=== PATIENT | female | born 1970 | race African-American/Black ===

== ENCOUNTER 2021-02-25 12:43 | Outpatient (REF) | payer BC, SELFPAY ==
--- NOTE | ~2021-02-25 | MM_ITS ---
EXAMINATION: MM SCREENING DIGITAL BREAST TOMOSYNTHESIS, BILATERAL CLINICAL INFORMATION: Screening. Asymptomatic. Family history breast cancer, sister. Personal history breast reduction mammoplasty 2012. The lifetime risk of breast cancer based on the Tyrer-Cuzick Model is 28%. COMPARISON: Mammography: 09/29/2018; outside mammography 12/14/2015 ([facility]). TECHNIQUE: Digital breast tomosynthesis is performed in both the craniocaudal and mediolateral oblique views along with computer-aided detection (CAD). Synthesized 2D images are generated from the tomosynthesis. FINDINGS: There are scattered areas of fibroglandular density (ACR BI-RADS breast composition Category b). There are no significant masses, abnormal calcifications, or other abnormalities. Parenchymal pattern is similar to prior studies. Some minor scarring consistent with the reduction mammoplasty is stable. There is no developing density. The axilla are unremarkable. No significant changes. MM/MM tomosynthesis screening BI IMPRESSION: No mammographic evidence of malignancy. ASSESSMENT: BI-RADS 2: Benign RECOMMENDATION: 1. Routine annual mammography screening. 2. The lifetime risk of breast cancer based on the Tyrer-Cuzick Model is 28%. Additional annual adjunct screening with breast MRI may be of benefit in women with a risk score of 20% or greater. This patient's information was entered into a reminder system with a target due date for their next mammogram.
== END 2021-02-25 12:44 | disposition home or self-care (01) ==
LOC: HO.MAMMO 12:43
PROVIDERS: Visit Provider Internal Medicine
DX: Z12.31 Encounter for screening mammogram for malignant neoplasm of breast (principal)
CPT/HCPCS: 77063; 77067

== ENCOUNTER 2022-12-04 08:56 | Outpatient (REF) | payer BC, SELFPAY ==
[2022-12-04 11:15] LABS: MANUAL DIFF FLAG NO
[2022-12-04 11:42] LABS: Basophils Percent Auto 0.5 % (0-2); Eosinophils Absolute Auto 0.2 X10*3/uL (0.0-0.4); Eosinophils Percent Auto 3.2 % (0-4); Hematocrit 39.5 % (37.0-47.0); Hemoglobin 12.7 g/dl (12.0-16.0); Imm Gran Abs Auto 0.02 X10*3/uL (0.00-0.03); Imm Gran Pct Auto 0.3 % (0.0-0.4); Lymphocytes Absolute Auto 2.2 X10*3/uL (1.2-4.9); Mean Corpuscular HGB Conc 32.2 g/dl (31.0-35.0); Mean Corpuscular Hemoglobin 25.6 pg (27.0-33.0); Mean Corpuscular Volume 79.6 fL (80.0-98.0); Mean Platelet Volume 10.1 fL (9.4-12.3); Monocytes Absolute Auto 0.3 X10*3/uL (0.1-1.2); Monocytes Percent Auto 5.3 % (2-11); Neutrophils Absolute Auto 3.4 x10*3/uL (2.0-8.3); Neutrophils Percent Auto 54.7 % (45-73); Platelet Count 390 X10*3/uL (160-400); Red Blood Count 4.96 X10*6/uL (4.20-5.50); Red Cell Distribution Width 14.4 % (11.0-16.0); White Blood Count 6.2 X10*3/uL (4.8-10.8)
[2022-12-04 12:28] LABS: TSH reflex Free T4 2.68 uIU/mL (0.32-4.0)
[2022-12-04 12:50] LABS: Alanine Aminotransferase 17 U/L (0-31); Albumin Level 4.2 g/dL (3.5-5.0); Alkaline Phosphatase 90 U/L (39-117); Anion Gap 13 (12-20); Aspartate Amino Transferase 21 U/L (5-31); Bilirubin Total 0.5 mg/dL (0.0-1.0); Blood Urea Nitrogen 8 mg/dL (9-16); Calcium 9.6 mg/dL (8.4-10.2); Carbon Dioxide 28 mmol/L (22-29); Chloride 107 mmol/L (96-108); Cholesterol 197 mg/dL; Estimated Glomerular Filt Rate > 60; Glucose Fasting 90 mg/dL (60-99); HDL Cholesterol 49 mg/dL; LDL Cholesterol Calculated 130 mg/dl; Potassium 4.9 mmol/L (3.3-5.1); Sodium 143 mmol/L (135-145); Total Protein 7.2 g/dL (6.5-8.0); Triglycerides 90 mg/dL
== END 2022-12-04 08:57 | disposition home or self-care (01) ==
LOC: HO.HMGCLDS 08:56
PROVIDERS: PCP Internal Medicine; Visit Provider Internal Medicine
DX: Z00.00 Encounter for general adult medical examination without abnormal findings (principal); E78.2 Mixed hyperlipidemia
CPT/HCPCS: 36415; 80053; 80061; 84443; 85025

== ENCOUNTER 2022-12-11 08:26 | Outpatient (REF) | payer BC, SELFPAY ==
--- NOTE | ~2022-12-11 | US_ITS ---
EXAMINATION: US ABDOMEN LIMITED CLINICAL INFORMATION: Calculus of gallbladder without cholecystitis without obstruction. COMPARISON: Ultrasound abdomen complete 01/19/2018 and 09/27/2016. TECHNIQUE: Real-time imaging of the right upper quadrant abdominal viscera. FINDINGS: PANCREAS: Pancreatic duct measures up to 3 mm, upper limits of normal. LIVER: Normal. The liver is normal in size. The liver contour is normal. Parenchymal echogenicity is normal. No focal hepatic lesion. There is no intrahepatic biliary duct dilatation seen. GALLBLADDER: The gallbladder is physiologically distended. Multiple mobile gallstones are present. No evidence of gallbladder wall thickening or pericholecystic fluid. COMMON BILE DUCT: Mildly dilated, measuring 0.8 cm in diameter. RIGHT KIDNEY: Normal. No hydronephrosis. No renal calculi or focal parenchymal lesions. The kidney measures 9.8 cm in maximum dimension. FREE FLUID: None. US/US abdomen limited IMPRESSION: * Cholelithiasis. No sonographic findings of acute cholecystitis. * Mildly dilated common bile duct measuring up to 8 mm. No intrahepatic biliary ductal dilatation. Pancreatic duct measures up to 3 mm, upper limits of normal. Given these findings, recommend MRCP for further evaluation.
== END 2022-12-11 08:27 | disposition home or self-care (01) ==
LOC: HO.HMGCX 08:26
PROVIDERS: PCP Internal Medicine; Visit Provider Internal Medicine
DX: K80.20 Calculus of gallbladder without cholecystitis without obstruction (principal)
CPT/HCPCS: 76705

== ENCOUNTER 2023-02-04 10:06 | Outpatient (REF) | payer BC, SELFPAY ==
--- NOTE | ~2023-02-04 | XR_ITS ---
EXAMINATION: XR HAND, RIGHT CLINICAL INFORMATION: Pain COMPARISON: None available. TECHNIQUE: PA, lateral, and oblique views of the right hand. FINDINGS: The bones and soft tissues are notable for moderate degeneration of the first carpal metacarpal articulation with slight subluxation.. No fracture. Alignment is anatomic. Joint spaces are otherwise maintained. No erosions or soft tissue calcifications. XR/XR hand RT min 3V IMPRESSION: Moderate degeneration first carpometacarpal articulation as above.
== END 2023-02-04 10:07 | disposition home or self-care (01) ==
LOC: HO.HOSX 10:06
PROVIDERS: PCP Internal Medicine; Visit Provider Orthopaedic Surgery
DX: M18.11 Unilateral primary osteoarthritis of first carpometacarpal joint, right hand (principal); G56.03 Carpal tunnel syndrome, bilateral upper limbs; R20.0 Anesthesia of skin; M65.311 Trigger thumb, right thumb; R20.2 Paresthesia of skin
CPT/HCPCS: 20550; 73130; J1100

== ENCOUNTER 2023-02-04 10:06 | Outpatient (AMB) | payer BC, SELFPAY ==
[2023-02-04 10:08] VITALS: BMI 35.3
--- NOTE | 2023-02-04 10:08 | A.OFFVIS_ITS ---
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 Pain is mainly by base of her thumb. States she feels like a lump is there. Has difficulty gripping and pinching. Has pains and aches with use of hand. Pain is 5/10. Seen with her PCP who referred patient to orthopedics. NO EMG done. 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 She says her numbness has been present for ~5 years, symptoms intermittent, but daily, and worse at night. She has not done a NCS. She did not specify which fingers were numb today, but she has some tingling in her small fingers. She complains of pain at the base of her thumbs, and thinks she can feel a painful lump there. She has pain and difficulty with pinching and gripping activities. She says she has locking and catching of her right thumb.. She says all her joints hurt in her hands. 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 [facility] Medical History Annual physical exam Anxiety Chronic GERD Combined hyperlipidemia FHx: breast cancer Gallstones Normal colonoscopy Surgical History H/O colonoscopy H/O: hysterectomy History of esophagogastroduodenoscopy (EGD) Family History Father Lung cancer Myocardial infarct Mother Multiple myeloma Maternal Grandmother Breast cancer Social History (Updated 02/04/23 @ 10:09 by TOMAS Ortez) Housing: House Patient Tobacco Use Status: Never used Tobacco e-Cigarette/Vaping Use: Never Used Second Hand Smoke Exposure: Yes Current occupational status: unemployed Current occupation: rt hand Cognitive needs: No Hearing needs: No Vision needs: Yes Review of Systems Const All systems reviewed & are unremarkable except as noted in HPI and below Physical Exam Vital Signs: BMI result Body Mass Index 35.3 Const General: cooperative, healthy appearing and no acute distress Orientation/consciousness: patient oriented x3 HEENT Head: Yes normocephalic and Yes atraumatic Eyes EOM: EOMs intact bilaterally Resp Effort & Inspection: normal respiratory effort and able to speak in complete sentences Cardio Jugular venous distension: no JVD Skin General skin exam: turgor normal Rashes: no rashes Neuro General: patient oriented x3 Extrem Other: Evaluation of Bilateral Upper Extremity: The patient is alert, oriented, and in no acute distress Neuro: Decreased subjective sensation to the tips of all digits of the right hand today. Normal sensation in the left hand today No thenar or intrinsic wasting Good APB muscle belly firing and good finger cross Vascular: Cap refill brisk ROM: She can make a fist and extend all her digits I believe her right thumb may be stuck in slight flexion. She can not hyper extend at the IP joint like she does on the opposite thumb and the IP joint is held in perhaps 5-10 degrees of flexion. Most Tender over the a1 jennifer of the right thumb No locking or catching of other digits Tenderness over the basal joint + Shoulder sign Negative Kyaw test Radiographs: Three views of the right hand were reviewed by me today in clinic. She has evidence of right basal joint osteoarthritis with joint space narrowing subluxation and early osteophyte formation. No fractures or dislocations. Psych Appearance: grossly normal Affect: normal affect Attitude: cooperative Office Procedures Fracture Care Details: No fracture, injection Fracture Billing Code: Fracture Billing Code Results Reviewed Results Reviewed: 02/04/23 10:28 Lidocaine HCl 1 % [Xylocaine 1 %] 2 ml .ROUTE .STK-MED ONE dexAMETHasone sod phosphate [Decadron] 4 mg .ROUTE .STK-MED ONE Assessment & Plan Assessment & Plan (1) Bilateral hand numbness: Code(s): R20.0 - Anesthesia of skin (2) Trigger thumb of right hand: Code(s): M65.311 - Trigger thumb, right thumb (3) Osteoarthritis of carpometacarpal joint of right thumb: Code(s): M18.11 - Unilateral primary osteoarthritis of first carpometacarpal joint, right hand Plan Assessment & Plan: 1. Right trigger thumb I educated her about this condition I discussed operative and non-operative treatment options The patient would like to proceed with an injection Injection #1: The risks and benefits of a steroid injection including but not limited to risk of damage to blood vessels, nerves, tendons, infection, skin bleaching, failure to improve symptoms, increased pain, and possible need for further injections or other intervention were discussed with the patient and the patient wishes to proceed with the steroid injection. Once consent was obtained, I sterilely prepped the area over the A1 jennifer of the flexor tendon sheath of the right thumb. I then injected the flexor tendon sheath with a combination of 1 mL of dexamethasone (4mg/ml), and 1% lidocaine. The patient tolerated the procedure well with no complications. If the patient continues to have locking and catching 4-6 weeks following this injection, they may call to schedule appointment to discuss alternative treatment options. This thumb may be locked in flexion. 2. Bilateral hand numbness In all digits of the right hand today Symptoms intermittent, but daily, worse at night I educated her about carpal & cubital tunnel syndrome I ordered a NCS to assess for peripheral neuropathy vs cervical radiculopathy She will follow up when completed for review 3. Right basal joint arthritis I educated her about this condition I discussed treatment options I recommend activity modification and bracing She should limit or avoid any heavy or repetitive pinching and gripping activities She was fitted for bilateral comfort cool braces to wear with daily activity Scribed for Lilinaa Rosas MD by Alden Dey, medical practice administrator, on 02/04/23 at 10:30 AM, EST. Orders: Orders NE nerve conduction velocity Today R20.0 - Anesthesia of skin, R20.2 - Paresthesia of skin XR hand RT min 3V Today M79.641 - Pain in right hand Coding Level of Care Code New Pt Level 4 (92593) Diagnoses Bilateral hand numbness R20.0 Trigger thumb of right hand M65.311 Osteoarthritis of carpometacarpal joint of right thumb M18.11 CPT Codes Fracture Care - Fracture Billing Code: Fracture Billing Code ([id number])
== END 2023-02-04 11:32 | disposition home or self-care (01) ==
PROVIDERS: PCP Internal Medicine; Visit Provider Orthopaedic Surgery
DX: M65.311 Trigger thumb, right thumb (principal); M18.11 Unilateral primary osteoarthritis of first carpometacarpal joint, right hand
CPT/HCPCS: 20550; 99204

== ENCOUNTER 2023-02-16 07:19 | Outpatient (REF) | payer BC, SELFPAY ==
--- NOTE | ~2023-02-16 | MR_ITS ---
EXAMINATION: MR ABDOMEN WITHOUT CONTRAST CLINICAL INFORMATION: Calculus of the gallbladder without cholecystitis without obstruction COMPARISON: Abdominal ultrasound 12/11/2022 TECHNIQUE: MR abdomen is performed without gadolinium contrast. FINDINGS: LUNG BASES: Unremarkable. ABDOMINAL AND PELVIC WALL: Unremarkable. LIVER AND BILIARY TREE: Liver is enlarged measuring 18.9 cm in span. Few scattered subcentimeter benign-appearing hepatic cysts. Mild loss of signal on opposed phase imaging suggesting hepatic steatosis. Common bile duct measures 8 mm in maximal dimension which is mildly dilated with trace prominence of the central intrahepatic ducts however the common bile duct tapers to normal caliber at 5 mm distally. No intraluminal filling defect to suggest choledocholithiasis. GALLBLADDER: Cholelithiasis without evidence of acute cholecystitis. PANCREAS: Pancreatic duct measures 3 mm which is within upper limits of normal. Lack of intravenous contrast limits assessment for any pancreatic mass. SPLEEN: Unremarkable. ADRENAL GLANDS: Unremarkable. KIDNEYS AND URETERS: Bosniak 1 benign-appearing left renal cyst no imaging follow-up recommended. GASTROINTESTINAL TRACT: Diverticulosis without evidence of diverticulitis. VASCULAR: Unremarkable. LYMPH NODES/PERITONEUM: No lymphadenopathy. FREE FLUID: None. OSSEOUS STRUCTURES: Unremarkable. MR/MR MRCP IMPRESSION: Common bile duct measures 8 mm in maximal dimension which is mildly dilated with trace prominence of the central intrahepatic ducts however the common bile duct tapers to normal caliber at 5 mm distally. No intraluminal filling defect to suggest choledocholithiasis. Pancreatic duct measures 3 mm which is within upper limits of normal. Lack of intravenous contrast limits assessment for any pancreatic mass. Liver is enlarged measuring 18.9 cm in span. Few scattered subcentimeter benign-appearing hepatic cysts. Mild loss of signal on opposed phase imaging suggesting hepatic steatosis.
== END 2023-02-16 07:20 | disposition home or self-care (01) ==
LOC: HO.MRI 07:19
PROVIDERS: PCP Internal Medicine; Visit Provider Internal Medicine
DX: K80.20 Calculus of gallbladder without cholecystitis without obstruction (principal); K83.8 Other specified diseases of biliary tract
CPT/HCPCS: 74181

== ENCOUNTER 2023-03-05 09:29 | Outpatient (AMB) | payer BC, SELFPAY ==
--- NOTE | 2023-03-05 09:31 | MHC.OFFVIS ---
Intake Vital Signs 03/05/23 09:32 Height 5 ft Weight 186 lb 1.122 oz BMI 36.3 Blood Pressure Location Lt brachial Position Sitting Intake Visit Reasons: Colonoscopy screening Intake Note: Triny presents in office as a new.patient for a colonoscopy screening PT CC: pt reports having abdominal pain , bloating , constipation/diarrhea , GERD pt denies any other GI Issues Consulting Manager Required: No Accompanied by: Self / Same As Patient Allergies No Known Allergies Allergy (Verified 03/05/23 09:32) HPI HPI Comments History of Present Illness Details 52-year-old female referred for screening colonoscopy She presents with a feeling of incomplete evacuation, hemorrhoids, alternating stool pattern, abdominal bloating-admits to a lot of stress Appetite is good- well controlled gerd-she does not take any medication rarely drinks etoh Hx diverticulosis-she has hemorrhoids home that typically do not bleed Review of chart she notes EGD 2018 Normal colonoscopy 2011- Dr. Steele No nausea, vomiting, hematemesis, hematochezia fever or chills PFSH Medical History (Updated 03/05/23 @ 10:18 by Brandi Edwards PA-C) Annual physical exam Anxiety Chronic GERD Combined hyperlipidemia FHx: breast cancer Gallstones Normal colonoscopy Surgical History H/O colonoscopy H/O: hysterectomy History of esophagogastroduodenoscopy (EGD) Family History Father Lung cancer Myocardial infarct Mother Multiple myeloma Maternal Grandmother Breast cancer Social History (Updated 03/05/23 @ 09:49 by Brandi Edwards PA-C) Household Members Other:: 2 daughters Housing: House Patient Tobacco Use Status: Never used Tobacco e-Cigarette/Vaping Use: Never Used Second Hand Smoke Exposure: Yes Current occupational status: unemployed Current occupation: rt hand Cognitive needs: No Hearing needs: No Vision needs: Yes Review of Systems Const All systems reviewed & are unremarkable except as noted in HPI and below Card Denies chest pain and Denies dyspnea Resp Denies dyspnea GI Denies hematochezia, Reports constipation, Denies heartburn, Reports diarrhea, Denies nausea and Denies vomiting Psych Reports anxiety Physical Exam Vital Signs: BMI result Body Mass Index 36.3 Const General: cooperative, healthy appearing, comfortable, no acute distress and anxious Orientation/consciousness: patient oriented x3 Limitations: no limitations Eyes Sclerae: sclerae normal Resp Effort & Inspection: normal respiratory effort and able to speak in complete sentences Auscultation: clear to auscultation bilaterally Cardio Rate: regular rate Rhythm: regular rhythm Heart sounds: S1 normal heart sound present and S2 normal heart sound present GI Palpation (GI): Soft to palpation and nontender Auscultation: normal bowel sounds Skin General skin exam: no rashes or lesions noted Neuro General: patient oriented x3 Extrem General: Yes full ROM Psych Appearance: grossly normal and well kempt Mental Status: mental status grossly normal Speech and movement: Normal speech and movement present and Clear speech present Affect: normal affect Attitude: cooperative Thought process: Normal thought process present Thought content: Normal thought content present Insight: Good insight present (Psych) Judgement: Good judgement present (Psych) Assessment & Plan Assessment & Plan (1) Normal colonoscopy: Comment: normal 2011 Plan: Screening colonoscopy MiraLax Gatorade prep (2) Chronic GERD: Comment: EGD normal 2018 no reflux - issues Code(s): K21.9 - Gastro-esophageal reflux disease without esophagitis (3) Hemorrhoids: Code(s): K64.9 - Unspecified hemorrhoids Plan: Avoid straining Maintain high-fiber diet, fiber supplement Hemorrhoidal cream (4) IBS (irritable bowel syndrome): Comment: Stressful situation Code(s): K58.9 - Irritable bowel syndrome without diarrhea Plan: Stress reduction Plan Colonoscopy- MG prep FEMALE pls Orders: Orders Colonoscopy - GI Use Only Today Z12.11 - Encounter for screening for malignant neoplasm of colon Medications: New bisacodyl (Dulcolax (bisacodyl)) Take 4 tablets by mouth at 12:00pm the day before your procedure. 20 mg (4 x 5 mg) PO ONCE 1 day 4 tabs 0RF colonoscopy prep Z12.11 - Encounter for screening for malignant neoplasm of colon polyethylene glycol 3350 (Miralax) Take as directed by mouth the day before your procedure. 238 grams PO ONCE 1 day PRN 238 grams 0RF laxative effect methylcellulose (laxative) (Citrucel) 500 mg PO TID 30 days 90 tabs 5RF hydrocortisone 2.5% (Proctosol HC) 1 appl UT BEDTIME PRN 30 grams 3RF hemorrhoids Patient Instructions: Very pleasant 52-year-old female IBS, referred for screening colonoscopy Reviewed IBS, stress reduction, maintain high-fiber diet avoid straining with hemorrhoid Rectal cream, Citrucel, Encouraged to call questions or concerns Appreciate the opportunity assist in care the patient Coding Level of Care Code New Pt Level 3 (97371) Diagnoses Normal colonoscopy Chronic GERD K21.9 Hemorrhoids K64.9 IBS (irritable bowel syndrome) K58.9 Time Spent (min) 30
[2023-03-05 09:32] VITALS: BMI 36.3
== END 2023-03-05 10:20 | disposition home or self-care (01) ==
PROVIDERS: PCP Internal Medicine; Visit Provider Physician Assistant
DX: K21.9 Gastro-esophageal reflux disease without esophagitis (principal); K64.9 Unspecified hemorrhoids; K58.9 Irritable bowel syndrome, unspecified
CPT/HCPCS: 99203

== ENCOUNTER → 2023-03-05 09:29 | Outpatient (BNVA) | payer BC, SELFPAY | PROVIDERS: PCP Internal Medicine; Visit Provider Physician Assistant ==

== ENCOUNTER 2023-03-18 09:32 | Outpatient (REF) | payer BC, SELFPAY ==
--- NOTE | 2023-03-18 09:34 | EMG_ITS ---
Please see scanned EMG / Nerve Conduction Report. MTDD
== END 2023-03-18 09:33 | disposition home or self-care (01) ==
LOC: HO.NEURO 09:32
PROVIDERS: PCP Internal Medicine; Visit Provider Orthopaedic Surgery
DX: R20.0 Anesthesia of skin (principal); R20.2 Paresthesia of skin
CPT/HCPCS: 95885; 95913

== ENCOUNTER 2023-04-07 15:47 | Outpatient (AMB) | payer BC, SELFPAY ==
[2023-04-07 16:10] VITALS: BMI 36.3
--- NOTE | 2023-04-07 16:10 | MHC.OFFVIS ---
Intake Vital Signs 04/07/23 16:10 Height 5 ft Weight 186 lb BMI 36.3 Intake Visit Reasons: O/V rt thumb trigger s/p injection 02/04/23 Intake Note: Triny 52 yr old female presents today s/p right thumb trigger injection from 02/04/23. States injection did not help and would like to discuss surgery. Allergies No Known Allergies Allergy (Verified 04/07/23 16:18) HPI O/V rt thumb trigger s/p injection 02/04/23 HPI Details Triny Asher is a 52-year-old woman who presents today to the office for a follow up of right thumb trigger status post injection on 02/04/23. The patient reports no significant relief from the last injection. She is interested in surgical intervention as possible treatment options. She reports having bony pain and continues to have tenderness. She also still has numbness and tingling in both hands, left worse than right. She recently had a nerve conduction study. She is currently not working. [facility] Medical History Annual physical exam Anxiety Chronic GERD Combined hyperlipidemia FHx: breast cancer Gallstones Normal colonoscopy Surgical History H/O colonoscopy H/O: hysterectomy History of esophagogastroduodenoscopy (EGD) Family History Father Lung cancer Myocardial infarct Mother Multiple myeloma Maternal Grandmother Breast cancer Social History Household Members Other:: 2 daughters Housing: House Patient Tobacco Use Status: Never used Tobacco e-Cigarette/Vaping Use: Never Used Second Hand Smoke Exposure: Yes Current occupational status: unemployed Current occupation: rt hand Cognitive needs: No Hearing needs: No Vision needs: Yes Review of Systems Const All systems reviewed & are unremarkable except as noted in HPI and below Physical Exam Vital Signs: BMI result Body Mass Index 36.3 Const General: cooperative, healthy appearing and no acute distress Orientation/consciousness: patient oriented x3 HEENT Head: Yes normocephalic and Yes atraumatic Eyes EOM: EOMs intact bilaterally Resp Effort & Inspection: normal respiratory effort and able to speak in complete sentences Cardio Jugular venous distension: no JVD Skin General skin exam: turgor normal, ecchymosis (No) and erythema (No) Rashes: no rashes Trauma: no lacerations or abrasions Neuro Other: Vascular: Cap refill brisk General: patient oriented x3 Extrem Other: The patient was alert oriented and in no acute distress. Her right thumb is currently locked in about 30 degrees of flexion at the IP joint. She is tender over the A1 jennifer. She reports that she was having locking and catching but now she can not straighten her thumb. She is still make a fist and extend all of her fingers. No swelling or erythema or evidence of infection. She feels like the fingers in her right hand do not have any numbness or tingling at present. However, she does get numbness and tingling in both hands daily. 03/18/23: EMG & NCV by Dr. Canela. Note: He reports mild right carpal tunnel syndrome. It appears both hands were evaluated, and he does not make mention of any ulnar nerve problems. Psych Appearance: grossly normal Affect: normal affect Attitude: cooperative Assessment & Plan Assessment & Plan (1) Trigger thumb of right hand: Code(s): M65.311 - Trigger thumb, right thumb (2) Carpal tunnel syndrome of right wrist: Code(s): G56.01 - Carpal tunnel syndrome, right upper limb Plan Assessment and plan: 1. Right trigger thumb locked in flexion 1 injection perform 02/04/2023 2. Right carpal tunnel syndrome, mild I educated the patient about these conditions We discussed operative and non operative treatment options. I am recommending surgery and she wishes to proceed. The risks and benefits of operative treatment were discussed with the patient and the patient wishes to proceed with surgery. These risks include, but are not limited to risk of damage to blood vessels, nerves, tendons, infection, recurrence, incomplete relief of preoperative symptoms, persistent pain, possible need for further surgery and the risks associated with regional blocks and anesthesia. The plan is to take the patient to the operating room sometime in the next few weeks for the following procedures: 1. Right trigger thumb release 2. Right carpal tunnel release under local All of the preoperative paperwork including the consent was filled out today. All the patient's questions were answered. The patient understands that they will be contacted by our plastic surgery specialist soon to schedule this procedure 3. Numbness and tingling in the left hand No findings on nerve conduction study We can re-evaluate this in the future. Scribed for Dr. Liliana Rosas by Fabien Landis, medical director occupational health, on 04/07/2023. I, Dr. Liliana Rosas, have personally reviewed and agree with the information entered by the scribe. Coding Level of Care Code Est Pt Level 4 (49152) Diagnoses Trigger thumb of right hand M65.311 Carpal tunnel syndrome of right wrist G56.01
== END 2023-04-07 16:49 | disposition home or self-care (01) ==
PROVIDERS: PCP Internal Medicine; Visit Provider Orthopaedic Surgery
DX: M65.311 Trigger thumb, right thumb (principal); G56.01 Carpal tunnel syndrome, right upper limb
CPT/HCPCS: 99214

== ENCOUNTER → 2023-04-07 15:47 | Outpatient (BNVA) | payer BC, SELFPAY | PROVIDERS: PCP Internal Medicine; Visit Provider Orthopaedic Surgery ==

== ENCOUNTER 2023-05-14 12:53 | Day surgery (SDC) | payer BC, SELFPAY ==
[2023-05-14 13:15] VITALS: BMI 36.1; BMI 36.3
--- NOTE | 2023-05-14 16:02 | MHC.SHP ---
Pre-Procedural Eval Section A Date of Service: 05/14/23 The patient is an INPATIENT: No Changes since office visit: No Cold of Flu in the past 2 weeks, No New Medical Problems, No Changes in Medication and No Patient answered all questions The History & Physical has been completed within 30 days and I have reviewed it.: Yes Section B Chief Complaint: Trigger thumb, right thumb Allergies: Allergies Allergy/AdvReac Type Severity Reaction Status Date / Time No Known Allergies Allergy Verified 04/07/23 16:18 Plan I have reviewed the history and physical and performed a pertinent physical examination on my patient. No changes have occurred unless specified. Time Spent With Patient Time: Total time managing care of this patient today ____ minutes.
--- NOTE | 2023-05-14 16:03 | W.PM.OPN ---
Operative Note Operative Note Date of Service: 05/14/23 Narrative: Preop diagnosis: 1. right Carpal tunnel syndrome 2. Right trigger thumb , locked in about 45 degrees of flexion Postop diagnosis: same Procedure: 1. right Carpal tunnel release 2. Right trigger thumb release Surgeon: Liliana Rosas MD Anesthesia: local block using 1% lidocaine with epinephrine Findings: Thickened transverse carpal ligament. EBL: Less than 5 mL Specimens: None Complications: None Disposition: Brought to recovery room in stable condition Plan: Follow-up for 10-14 days for wound check and suture removal Indications: The patient is 52 years old, with right carpal tunnel syndrome and a right trigger thumb that have beenunresponsive to nonoperative management. The risks and benefits of operative treatment including but not limited to risk of damage to blood vessels, nerves, tendons, infection, persistent pain, persistent symptoms, or possible need for additional surgery were discussed with the patient and the patient wishes to proceed with surgery. Procedure: Once consent was obtained a local block was performed using a combination of 1% lidocaine with epinephrine. The patient was then brought back to the operating suite and placed on the operative table in supine position. The right upper extremity was prepped and draped in a standard surgical fashion. Once assured that we had a good block, a 2.0 cm longitudinal incision was made centered over the carpal tunnel. The incision was made through the skin to the subcutaneous tissues using a #15 blade. Dissection was made down to the level of the transverse carpal ligament with care being taken to protect the palmar cutaneous nerve. Once the transverse carpal ligament was clearly visualized, a longitudinal incision was made in the transverse carpal ligament 1st using a #15 blade, then using tenotomy scissors under direct visualization. Care was taken to look for and protect the motor branch of the median nerve when seen in this area. Once assured that we had a good block, a 1.5 cm oblique incision was made centered over the A1 jennifer of the right thumb . The incision was made through the skin to the subcutaneous tissues using a #15 blade. Careful dissection was made down to the level of the A1 jennifer using tenotomy scissors, with care being taken to protect the nearby neurovascular structures. A longitudinal incision was made in the A1 jennifer 1st using a #15 blade, then using tenotomy scissors under direct visualization. The A1 jennifer was noted to be thickened, causing an hourglass deformity in the FPL tendon.. Following our A1 jennifer release, we no longer saw any locking or catching of the digit with flexion and extension , and she was better able to extend her thumb.. Once satisfied with our carpal tunnel release the wound was copiously irrigated with normal saline and hemostasis was obtained with a brief period of local pressure. The skin edges were reapproximated with some 5.0 nylon suture material and a sterile dressing was applied. The patient appears to have tolerated the procedure well and with no complications. All digits were well vascularized at the conclusion of the case.
[2023-05-14 16:30] VITALS: BP 165/93; PULSE 78; RESP 16; TEMP 36.9; O2SAT 100
== END 2023-05-14 16:52 | disposition home or self-care (01) ==
PROVIDERS: PCP Internal Medicine; Visit Provider Orthopaedic Surgery
PROC: (CPT 26055; principal; 2023-05-14 14:00)
PROC: (CPT 64721; 2023-05-14 14:00)
DX: G56.01 Carpal tunnel syndrome, right upper limb (principal); M65.311 Trigger thumb, right thumb; R20.0 Anesthesia of skin; R20.2 Paresthesia of skin; F41.9 Anxiety disorder, unspecified; E78.2 Mixed hyperlipidemia
CPT/HCPCS: 64721; 26055; J0171

== ENCOUNTER → 2023-05-14 12:53 | Outpatient (BNV) | payer BC, SELFPAY | PROVIDERS: PCP Internal Medicine; Visit Provider Orthopaedic Surgery | DX: G56.01 Carpal tunnel syndrome, right upper limb (principal); M65.311 Trigger thumb, right thumb | CPT/HCPCS: 26055; 64721 ==

== ENCOUNTER 2023-05-26 13:29 | Outpatient (AMB) | payer BC, SELFPAY ==
[2023-05-26 13:43] VITALS: BMI 36.3
--- NOTE | 2023-05-26 13:43 | MHC.OFFVIS ---
Intake Vital Signs 05/26/23 13:43 Height 5 ft Weight 186 lb BMI 36.3 Intake Visit Reasons: PO-Rt Thumb TF, RT CTR 05/14/23 Intake Note: Triny 53 yr old female presents today for her P/O visit for her Rt thumb trigger release and rt hand CTR from 05/14/23. States numbness has improved and her finger no longer locks. She is having soreness. Sutures removed and stri strips applied. Allergies No Known Allergies Allergy (Verified 05/26/23 13:55) HPI PO-Rt Thumb TF, RT CTR 05/14/23 HPI Details Triny is a 53 year old right hand dominant woman who presents S/P right trigger thumb release & carpal tunnel release, DOS: 05/14/23. She says she is doing well and her sensation is now normal. She no longer has any locking or catching of her thumb, but she says her thumb still feels tight . [facility] Medical History Annual physical exam Anxiety Chronic GERD Combined hyperlipidemia FHx: breast cancer Gallstones Normal colonoscopy Surgical History H/O colonoscopy H/O: hysterectomy History of esophagogastroduodenoscopy (EGD) Family History Father Lung cancer Myocardial infarct Mother Multiple myeloma Maternal Grandmother Breast cancer Social History Household Members Other:: 2 daughters Housing: House Patient Tobacco Use Status: Never used Tobacco e-Cigarette/Vaping Use: Never Used Second Hand Smoke Exposure: Yes Current occupational status: unemployed Current occupation: rt hand Cognitive needs: No Hearing needs: No Vision needs: Yes Review of Systems Const All systems reviewed & are unremarkable except as noted in HPI and below Physical Exam Vital Signs: BMI result Body Mass Index 36.3 Const General: no acute distress and alert Orientation/consciousness: patient oriented x3 Neuro General: patient oriented x3 Extrem Other: The patient was alert oriented and in no acute distress The incision is healing well with no erythema drainage or evidence of infection. Sutures removed and Steri-Strips applied She can make a fist and extend all her digits No locking or catching Sensation is normal to the tips of all digits Cap refill is brisk 03/18/23: EMG & NCV by Dr. Canela. Performed bilaterally Psych Appearance: grossly normal Affect: normal affect Attitude: cooperative Assessment & Plan Assessment & Plan (1) Trigger thumb of right hand: Code(s): M65.311 - Trigger thumb, right thumb (2) Carpal tunnel syndrome of right wrist: Code(s): G56.01 - Carpal tunnel syndrome, right upper limb Plan Assessment and plan: 1. Right trigger thumb, S/P release DOS: 05/14/23 2. Right carpal tunnel syndrome, S/P release DOS: 05/14/23 now with normal sensation The patient appears to be doing well post-operatively I educated her about the post-operative course I explained the signs and symptoms of infection, if the patient develops any new or worsening erythema, drainage, pain, or warmth they should contact the clinic or attend the ED. I discussed activity modifications, she is to lift nothing heavier than a cellphone for the next two weeks She will perform gentle ROM exercises at home She should avoid any underwater activities for the next 5 days She should gently massage about the incision site to reduce the risk of hypersensitivity She can follow up prn 3. Numbness and tingling in the left hand No findings on nerve conduction study We can re-evaluate this in the future. Scribed for Liliana Rosas MD by Alden Dey, medical transcription editor, on 05/26/23 at 1:45 PM, EST. Coding Level of Care Code Global (94928) Diagnoses Trigger thumb of right hand M65.311 Carpal tunnel syndrome of right wrist G56.01
== END 2023-05-26 13:55 | disposition home or self-care (01) ==
PROVIDERS: PCP Internal Medicine; Visit Provider Orthopaedic Surgery
DX: M65.311 Trigger thumb, right thumb (principal); G56.01 Carpal tunnel syndrome, right upper limb
CPT/HCPCS: 99024

== ENCOUNTER → 2023-05-26 13:29 | Outpatient (BNVA) | payer BC, SELFPAY | PROVIDERS: PCP Internal Medicine; Visit Provider Orthopaedic Surgery ==

== ENCOUNTER 2023-12-09 07:01 | Outpatient (REF) | payer BC, SELFPAY ==
[2023-12-09 10:22] LABS: MANUAL DIFF FLAG NO
[2023-12-09 10:32] LABS: Basophils Percent Auto 0.4 % (0-2); Eosinophils Absolute Auto 0.3 X10*3/uL (0.0-0.4); Eosinophils Percent Auto 3.5 % (0-4); Hematocrit 37.5 % (37.0-47.0); Hemoglobin 12.2 g/dl (12.0-16.0); Imm Gran Abs Auto 0.02 X10*3/uL (0.00-0.03); Imm Gran Pct Auto 0.3 % (0.0-0.4); Lymphocytes Absolute Auto 2.5 X10*3/uL (1.2-4.9); Lymphocytes Percent Auto 33.4 % (20-40); Mean Corpuscular HGB Conc 32.5 g/dl (31.0-35.0); Mean Corpuscular Hemoglobin 26.2 pg (27.0-33.0); Mean Corpuscular Volume 80.6 fL (80.0-98.0); Mean Platelet Volume 10.2 fL (9.4-12.3); Monocytes Absolute Auto 0.4 X10*3/uL (0.1-1.2); Monocytes Percent Auto 5.7 % (2-11); Neutrophils Absolute Auto 4.2 x10*3/uL (2.0-8.3); Neutrophils Percent Auto 56.7 % (45-73); Platelet Count 343 X10*3/uL (160-400); Red Blood Count 4.65 X10*6/uL (4.20-5.50); Red Cell Distribution Width 15.9 % (11.0-16.0); White Blood Count 7.3 X10*3/uL (4.8-10.8)
[2023-12-09 10:54] LABS: Alanine Aminotransferase 23 U/L (0-31); Alkaline Phosphatase 82 U/L (39-117); Anion Gap 13 (12-20); Aspartate Amino Transferase 23 U/L (5-31); Bilirubin Total 0.5 mg/dL (0.0-1.0); Blood Urea Nitrogen 8 mg/dL (9-16); Calcium 9.1 mg/dL (8.4-10.2); Carbon Dioxide 26 mmol/L (22-29); Chloride 107 mmol/L (96-108); Cholesterol 215 mg/dL (<200); Estimated Glomerular Filt Rate > 60; Glucose Fasting 83 mg/dL (60-99); HDL Cholesterol 58 mg/dL (>40); LDL Cholesterol Calculated 132 mg/dL (<100); Potassium 3.9 mmol/L (3.3-5.1); Sodium 142 mmol/L (135-145); Triglycerides 125 mg/dL (<150)
[2023-12-09 11:16] LABS: TSH reflex Free T4 3.09 uIU/mL (0.32-4.0); Vitamin D 25-OH Total 36.5 ng/mL (>30)
== END 2023-12-09 07:02 | disposition home or self-care (01) ==
LOC: HO.HMGCLDS 07:01
PROVIDERS: PCP Internal Medicine; Visit Provider Internal Medicine
DX: Z00.00 Encounter for general adult medical examination without abnormal findings (principal); E78.2 Mixed hyperlipidemia
CPT/HCPCS: 36415; 80053; 80061; 82306; 84443; 85025

== ENCOUNTER 2023-12-10 08:02 | Outpatient (AMB) | payer BC, SELFPAY ==
[2023-12-10 08:04] VITALS: BP 116/74; PULSE 91; O2SAT 99; BMI 38.5
--- NOTE | 2023-12-10 08:04 | MHC.PC.OV ---
Vital Signs 12/10/23 08:04 Height 5 ft Weight 197 lb BMI 38.5 BP 116/74 Blood Pressure Location Rt brachial Position Sitting Pulse 91 Pulse Source Pulse Oximeter Pulse Oximetry (%) 99 Oxygen Delivery Method Room Air Intake Visit Reasons: PE Intake Note: Pt is here today for PE. Allergies No Known Allergies Allergy (Verified 12/10/23 08:06) Medication List - Last Reconciled 12/10/23 by Pratibha Tinajero MD hydrocortisone 2.5% (Proctosol HC) 1 appl [place] BEDTIME PRN methylcellulose (laxative) (Citrucel) 500 mg PO TID 30 days polyethylene glycol 3350 (Miralax) 238 grams PO ONCE PRN 1 day Tobacco use date assessed: 12/10/23 Dental Screening Dental Screen Date: 12/10/23 Did you have a dental visit in the last 12 months?: Yes Did you have a dental problem in the last 6 months where you did not have access to dental care?: No Was dental information given to patient?: Patient has dentist HPI PE HPI Details Pt presents for PE. PFSH Medical History Annual physical exam Combined hyperlipidemia FHx: breast cancer Normal colonoscopy Anxiety Gallstones Chronic GERD Surgical History H/O: hysterectomy History of esophagogastroduodenoscopy (EGD) H/O colonoscopy Family History Father Lung cancer Myocardial infarct Substance use disorder Mother Multiple myeloma Maternal Grandmother Breast cancer Social History Household Members Other:: 2 daughters Housing: House Patient Tobacco Use Status: Never used Tobacco e-Cigarette/Vaping Use: Never Used Second Hand Smoke Exposure: Yes service: No Current occupational status: unemployed Current occupation: rt hand Cognitive needs: No Hearing needs: No Vision needs: Yes Questionnaire PHQ-9 Over the last 2 weeks, how often have you been bothered by any of the following problems? 1. Little interest or pleasure in doing things: not at all 2. Feeling down, depressed, or hopeless: several days 3. Trouble falling or staying asleep, or sleeping too much: nearly every day 4. Feeling tired or having little energy: nearly every day 5. Poor appetite or overeating: more than half the days 6. Feeling bad about yourself - or that you are a failure or have let yourself or your family down: not at all 7. Trouble concentrating on things, such as reading the newspaper or watching television: not at all 8. Moving or speaking so slowly that other people could have noticed. Or the opposite - being so fidgety or restless that you have been moving around a lot more than usual: not at all 9. Thoughts that you would be better off or of hurting yourself in some way: not at all Total score: 9 Depression Screening Interpretation: Negative Depression Screening Done: Yes Source: Developed by Drs. Burke Rodriguez, Debbi Stevens, Martin Hernández and colleagues, with an educational arias from [employer]. Thrive Questionnaire I am a: Patient What is your living situation today?: I have a steady place to live Within the past 12 months, did the food you bought not last and you didn't have the money to get more?: Never true Within the past 12 months, did you worry whether your food would run out before you got money to buy more?: Never true Do you have trouble paying for medicines?: No Do you have trouble getting transportation to medical appointments?: No Do you have trouble paying your heating and electricity bill?: I choose not to answer this question Do you have trouble taking care of your child, family member or friend?: No Do you have trouble with day-to-day activities such as bathing, preparing meals, shopping, managing finances, etc.?: No Are you currently unemployed and looking for a job?: No Are you interested in more education?: No Please select the resources that you would like help with: None THRIVE Score: 0 AUDIT C Alcohol Use Questionnaire (AUDIT-C) 1. How often do you have a drink containing alcohol?: 2-4 times a month 2. How many drinks containing alcohol do you have on a typical day when you are drinking?: 1 or 2 3. How often do you have six or more drinks on one occasion?: Never Total Score: 2 PRINCESS-7 AMB Questionnaire PRINCESS-7 Date PRINCESS - 7 assessed: 12/10/23 Feeling nervous, anxious, or on edge: 2 = More than half the days Not being able to stop or control worryin = More than half the days Worrying too much about different things: 2 = More than half the days Trouble relaxin = Several days Being so restless that it is hard to sit still: 0 = Not at all Becoming easily annoyed or irritable: 0 = Not at all Feeling afraid as if something awful might happen: 1 = Several days Total PRINCESS-7 score (0-4 normal; 5-9 mild; 10-14 moderate; 15-21 severe): 8 Source: Developed by Drs. Burke Rodriguez, Debbi Stevens, Martin Hernández and colleagues, with an educational arias from [employer]. Review of Systems Const All systems reviewed & are unremarkable except as noted in HPI and below Reports no additional complaints Eyes Reports no additional complaints ENT Reports no additional complaints Card Reports no additional complaints Resp Reports no additional complaints GI Reports no additional complaints Reports no additional complaints Physical exam (Primary Care) Vital Signs: Last Vital Signs Pulse 91 12/10/23 08:04 BP 116/74 12/10/23 08:04 Pulse Ox 99 12/10/23 08:04 Oxygen Delivery Method Room Air 12/10/23 08:04 BMI result Body Mass Index 38.5 Tobacco/Smoking Status: Tobacco use Status Tobacco use date assessed 12/10/23 12/10/23 08:11 Patient Tobacco Use Status Never used Tobacco 12/10/23 08:11 e-Cigarette/Vaping Use Never Used 12/10/23 08:11 PHQ-9: PHQ-9 Score PHQ-9: Total score 9 12/10/23 08:17 Depression Screening Interpretation: Negative Const General: no acute distress HENMT Head: Yes normal to inspection Ears: hearing grossly normal bilaterally General nose exam: Normal external nose present Face and sinus: Yes normal facial exam Mouth: Normal oral and palatal mucosa present Throat: Yes posterior oropharynx normal Eyes General: appearance normal, both eyes and all related structures Neck Neck: Yes no lymphadenopathy and Yes supple Resp Effort & Inspection: normal respiratory effort Auscultation: clear to auscultation bilaterally Cardio Rhythm: regular rhythm Heart sounds: S1 normal heart sound present and S2 normal heart sound present GI Inspection: Yes normal to inspection Palpation (GI): Soft to palpation Percussion: Yes normal to percussion Auscultation: normal bowel sounds Assessment and Plan Assessment & Plan (1) Fatigue: Code(s): R53.83 - Other fatigue Plan: check vit B12 and vit D (2) Annual physical exam: Code(s): Z00.00 - Encounter for general adult medical examination without abnormal findings Plan: Well-balanced diet regular exercise discussed with the patient. She is up-to-date with mammogram and will call to schedule colonoscopy. For chronic fatigue most likely related to marital stress patient was advised to start counseling. Orders: Orders Vitamin D 25-OH Total Today R53.83 - Other fatigue Comprehensive Tracy. Panel Fast 1 Year Z00.00 - Encounter for general adult medical examination without abnormal findings TSH reflex Free T4 1 Year Z00.00 - Encounter for general adult medical examination without abnormal findings Vitamin B12 and Folate 1 Year Z00.00 - Encounter for general adult medical examination without abnormal findings Vitamin B12 and Folate Today R53.83 - Other fatigue Complete Blood Count Auto Diff 1 Year Z00.00 - Encounter for general adult medical examination without abnormal findings Lipid Panel 1 Year Z00.00 - Encounter for general adult medical examination without abnormal findings IRON PROFILE 1 Year Z00.00 - Encounter for general adult medical examination without abnormal findings Vitamin D 25-OH Total 1 Year Z00.00 - Encounter for general adult medical examination without abnormal findings Coding Level of Care Code Est Pt Prev Care 40-64y(61901) Diagnoses Fatigue R53.83 Annual physical exam Z00.00
== END 2023-12-10 09:02 | disposition home or self-care (01) ==
PROVIDERS: Visit Provider Internal Medicine
DX: R53.83 Other fatigue (principal); Z00.00 Encounter for general adult medical examination without abnormal findings
CPT/HCPCS: 99396

== ENCOUNTER 2023-12-10 09:01 | Outpatient (REF) | payer BC, SELFPAY ==
[2023-12-10 10:59] LABS: Vitamin D 25-OH Total 29.9 ng/mL (>30)
[2023-12-10 11:21] LABS: Folate 11.5 ng/mL (> or = 4.0); Vitamin B12 1050 pg/mL (200-900)
== END 2023-12-10 09:02 | disposition home or self-care (01) ==
LOC: HO.HMGCLDS 09:01
PROVIDERS: PCP Internal Medicine; Visit Provider Internal Medicine
DX: R53.83 Other fatigue (principal)
CPT/HCPCS: 36415; 82306; 82607; 82746

== ENCOUNTER 2024-05-17 13:42 | Outpatient (AMB) | payer BC, SELFPAY ==
[2024-05-17 13:50] VITALS: BP 114/76; PULSE 85; O2SAT 99; BMI 38.1
--- NOTE | 2024-05-17 13:50 | MHC.PC.OV ---
Vital Signs 05/17/24 13:50 Height 5 ft Weight 195 lb BMI 38.1 BP 114/76 Blood Pressure Location Lt brachial Position Sitting Pulse 85 Pulse Source Pulse Oximeter Pulse Oximetry (%) 99 Oxygen Delivery Method Room Air Intake Visit Reasons: bruises on leg ? Intake Note: Pt is here today for a sick visit. Pt c/o bruises appearing on her legs. Allergies No Known Allergies Allergy (Verified 05/17/24 13:54) Medication List - Last Reconciled 05/17/24 by Pratibha Tinajero MD baclofen 10 mg PO BEDTIME hydrocortisone 2.5% (Proctosol HC) 1 appl [place] BEDTIME PRN Tobacco use date assessed: 12/10/23 Dental Screening Dental Screen Date: 12/10/23 HPI bruises on leg ? HPI Details Patient noticed some increased bruising on lower extremities without trauma. Patient denies any excessive bleeding and has been eating well-balanced diet. She is also concerned about left breast tenderness for the last 2 weeks. She denies nipple discharge change in the shape of the breast. [facility] Medical History Annual physical exam Combined hyperlipidemia FHx: breast cancer Normal colonoscopy Anxiety Gallstones Chronic GERD Surgical History H/O: hysterectomy History of esophagogastroduodenoscopy (EGD) H/O colonoscopy Family History Father Lung cancer Myocardial infarct Substance use disorder Mother Multiple myeloma Maternal Grandmother Breast cancer Social History Household Members Other:: 2 daughters Housing: House Patient Tobacco Use Status: Never used Tobacco e-Cigarette/Vaping Use: Never Used Second Hand Smoke Exposure: Yes service: No Current occupational status: unemployed Current occupation: rt hand Cognitive needs: No Hearing needs: No Vision needs: Yes Questionnaire Thrive Questionnaire Date Thrive assessed: 05/16/24 I am a: Patient What is your living situation today?: I have a steady place to live Within the past 12 months, did the food you bought not last and you didn't have the money to get more?: Never true Within the past 12 months, did you worry whether your food would run out before you got money to buy more?: Never true Do you have trouble paying for medicines?: No Do you have trouble getting transportation to medical appointments?: No Do you have trouble paying your heating and electricity bill?: I choose not to answer this question Do you have trouble taking care of your child, family member or friend?: No Do you have trouble with day-to-day activities such as bathing, preparing meals, shopping, managing finances, etc.?: No Are you currently unemployed and looking for a job?: No Are you interested in more education?: Yes Please select the resources that you would like help with: None Currently or been in a relationship where the following occur: I choose not to answer THRIVE Score: 0 AUDIT C Alcohol Use Questionnaire (AUDIT-C) 1. How often do you have a drink containing alcohol?: 2-4 times a month 2. How many drinks containing alcohol do you have on a typical day when you are drinking?: 1 or 2 3. How often do you have six or more drinks on one occasion?: Never Total Score: 2 PRINCESS-7 AMB Questionnaire PRINCESS-7 Date PRINCESS - 7 assessed: 05/17/24 Feeling nervous, anxious, or on edge: 0 = Not at all Not being able to stop or control worryin = Not at all Worrying too much about different things: 0 = Not at all Trouble relaxin = Not at all Being so restless that it is hard to sit still: 0 = Not at all Becoming easily annoyed or irritable: 0 = Not at all Feeling afraid as if something awful might happen: 0 = Not at all Total PRINCESS-7 score (0-4 normal; 5-9 mild; 10-14 moderate; 15-21 severe): 0 Source: Developed by Drs. Burke Rodriguez, Debbi Stevens, Martin Hernández and colleagues, with an educational arias from [employer]. Review of Systems Const All systems reviewed & are unremarkable except as noted in HPI and below Card Reports no additional complaints Resp Reports no additional complaints GI Reports no additional complaints Reports no additional complaints Physical exam (Primary Care) Vital Signs: Last Vital Signs Pulse 85 05/17/24 13:50 BP 114/76 05/17/24 13:50 Pulse Ox 99 10/22/24 13:50 Oxygen Delivery Method Room Air 05/17/24 13:50 BMI result Body Mass Index 38.1 Tobacco/Smoking Status: Tobacco use Status Tobacco use date assessed 12/10/23 05/17/24 13:50 Patient Tobacco Use Status Never used Tobacco 05/17/24 13:50 e-Cigarette/Vaping Use Never Used 05/17/24 13:50 Thrive Assessment: Date of Thrive Assessment Date Thrive assessed 05/16/24 05/17/24 13:50 Currently or been in a relationship where the following occur: I choose not to answer Const General: no acute distress HENMT Face and sinus: Yes normal facial exam Eyes General: appearance normal, both eyes and all related structures Chest Breast/axilla inspection: normal inspection of the breasts Breast/axilla palpation: no axillary lymphadenopathy and abnormal palpation of the breast (Left at12:00 o'clock 5 cm from the nipple tender ill-defined lump) Resp Effort & Inspection: normal respiratory effort Auscultation: clear to auscultation bilaterally Cardio Rhythm: regular rhythm Heart sounds: S1 normal heart sound present and S2 normal heart sound present Skin Other: Two small superficial bruises on the lower extremities and visible varicose veins Coding Level of Care Code Est Pt Level 3 (99834) Diagnoses Left breast lump N63.20 Easy bruising R23.3 Assessment & Plan Assessment & Plan (1) Left breast lump: Comment: 12 oclock Code(s): N63.20 - Unspecified lump in the left breast, unspecified quadrant Category: Medical Plan: Scheduled diagnostic mammogram and ultrasound of the left breast and screening mammogram on the right breast (2) Easy bruising: Code(s): R23.3 - Spontaneous ecchymoses Category: Medical Plan: Supportive care discussed with the patient Orders: Orders MM diagnostic mammo unilat LT Today N63.20 - Unspecified lump in the left breast, unspecified quadrant MM screening mammo unilat RT Today N63.20 - Unspecified lump in the left breast, unspecified quadrant, Z12.31 - Encounter for screening mammogram for malignant neoplasm of breast US breast LT complete Today N63.20 - Unspecified lump in the left breast, unspecified quadrant
== END 2024-05-17 15:01 | disposition home or self-care (01) ==
PROVIDERS: PCP Internal Medicine; Visit Provider Internal Medicine
DX: N63.20 Unspecified lump in the left breast, unspecified quadrant (principal); R23.3 Spontaneous ecchymoses

== ENCOUNTER → 2024-05-17 13:42 | Outpatient (BNVA) | payer BC, SELFPAY | PROVIDERS: PCP Internal Medicine; Visit Provider Internal Medicine ==